=== PATIENT | female | born 1940 | race Caucasian/White ===

== ENCOUNTER 2017-08-25 07:33 | Outpatient (CLI) | payer OTHER | END 2017-08-25 07:40 | disposition home or self-care (01) | LOC: LAB 07:33 | DX: I10 Essential (primary) hypertension (principal); E78.4 Other hyperlipidemia ==

== ENCOUNTER 2018-05-20 07:23 | Outpatient (CLI) | payer OTHER | END 2018-05-20 07:30 | disposition home or self-care (01) | LOC: LAB 07:23 | DX: I10 Essential (primary) hypertension (principal); E07.89 Other specified disorders of thyroid ==

== ENCOUNTER → 2018-10-18 07:22 | Outpatient (CLI) | payer OTHER | END | disposition home or self-care (01) | LOC: LAB 07:22 | DX: E03.8 Other specified hypothyroidism (principal); I10 Essential (primary) hypertension ==

== ENCOUNTER 2019-03-08 07:30 | Outpatient (CLI) | payer OTHER | END 2019-03-08 10:47 | disposition home or self-care (01) | LOC: LAB 07:30 | DX: I10 Essential (primary) hypertension (principal); E11.9 Type 2 diabetes mellitus without complications ==

== ENCOUNTER → 2019-08-23 07:48 | Outpatient (CLI) | payer OTHER | END | disposition home or self-care (01) | LOC: LAB 07:48 | DX: I10 Essential (primary) hypertension (principal) ==